=== PATIENT | male | born 1975 | race Caucasian/White ===

== ENCOUNTER 2020-04-16 23:47 | Emergency (ER) | payer SELFPAY ==
[~2020-04-16] VITALS: Ht 157.5 cm; Wt 78.0 kg
--- NOTE | 2020-04-16 23:54 | NUR ---
Oh faust in [facility] - 04/16/20 at 2355 by MEDDM AMBULATED TO ER BED 6
[2020-04-17 00:08] VITALS: BP 146/90
[2020-04-17] MEDS ORDERED: NACL 0.9% 1,000 ML IV SCH (00:17)
[2020-04-17] MEDS ORDERED: KETOROLAC 30 MG/ML VIAL IVP ONE (00:20)
--- NOTE | 2020-04-17 00:23 | NUR ---
AMBULATED TO ER BED 7
[2020-04-17 00:31] LABS: BASOPHILS # (AUTO) 0.1 K/uL (0.00-0.22); BASOPHILS % (AUTO) 0.8 % (0.0-2.0); EOSINOPHILS # (AUTO) 0.2 K/uL (0-0.4); EOSINOPHILS % (AUTO) 2.1 % (0.0-4.0); HEMATOCRIT 45.2 % (36-52); HEMOGLOBIN 15.3 g/dL (12.0-18.0); LYMPHOCYTES # (AUTO) 2.4 K/uL (2.0-11.5); LYMPHOCYTES % (AUTO) 23.4 % (20.5-51.1); MEAN CORPUSCULAR HEMOGLOBIN 31 pg (27-31); MEAN CORPUSCULAR HGB CONC 34 g/dL (33-37); MEAN CORPUSCULAR VOLUME 92.5 fL (80-94); MONOCYTES # (AUTO) 0.7 K/uL (0.8-1.0); MONOCYTES % (AUTO) 6.7 % (1.7-9.3); PLATELET COUNT (AUTO) 282 K/uL (140-450); RED BLOOD CELL COUNT(AUTO) 4.88 MIL/uL (4.20-6.10); RED CELL DISTRIBUTION WIDTH 13.7 % (11.6-13.7); WHITE BLOOD COUNT (AUTO) 10.4 K/uL (4.8-10.8)
--- NOTE | 2020-04-17 00:45 | NUR ---
44M PT PRESENTS TO ED WITH C/O DEHYDRATION, DIZZY, DIARRHEA X 7 DAYS. ALSO C/O PARK AND RATES PAIN 7/10 AND DESCRIBES IT THROBBING. BOWEL SOUNDS HYPERACTIVE AT ALL 4 QUADRANTS. ABD SOFT AND NON TENDER. DENIES SOB/COUGH. DENIES LOC. NKA. PMH: HTN
[2020-04-17 00:46] LABS: ANION GAP 13.2 (8-16); CARBON DIOXIDE 26.4 mmol/L (21-32); POTASSIUM 3.6 mmol/L (3.5-5.1); TOTAL BILIRUBIN 0.5 mg/dL (0.0-1.0)
[2020-04-17 02:29] VITALS: BP 132/75
--- NOTE | 2020-04-17 02:44 | NUR ---
RAINER DESIR AT BEDSIDE EVALUATING PT.
--- NOTE | 2020-04-17 02:53 | NUR ---
Patient discharged with v/s stable. Written and verbal after care instructions given and explained. Patient alert, oriented and verbalized understanding of instructions. Ambulatory with steady gait. All questions addressed prior to discharge. ID band removed. Patient advised to follow up with PMD. Rx of CIPRO, ZOFRAN, MOTRIN given. Patient educated on indication of medication including possible reaction and side effects. Opportunity to ask questions provided and answered.
== END 2020-04-17 02:53 | disposition home or self-care (01) ==
LOC: MED 23:47
DX: R19.7 Diarrhea, unspecified (principal); R51 Headache; I10 Essential (primary) hypertension
CPT/HCPCS: 36415; 80053; 83690; 85025; 96361; 96374; 99283; J1885; J7030

== ENCOUNTER 2020-11-28 19:45 | Inpatient (IN) | payer MEDICAID, SELFPAY ==
[~2020-11-28] VITALS: Ht 157.5 cm; Wt 65.3 kg
[2020-11-28 20:07] VITALS: BP 123/66
--- NOTE | 2020-11-28 20:08 | NUR ---
to bed # 11 ambulatory
--- NOTE | 2020-11-28 20:30 | NUR ---
PT HAS BEEN HAVING BODY ACHES, SOB, FEVER, AND HEADACHE X 2 WEEKS. SAYS HE COUGHED UP BLOOD TINGED PHELGM IN THE PAST TWO DAYS. PT SAYS HE HAD A RAPID COVID TEST YESTERDAY AT ANOTHER FACILITY AND TESTED NEGATIVE. PT'S COWORKERS HAVE BEEN SICK WITH COVID AND FAMILY MEMBERS. CURRENTLY AFEBRILE, C/O SOB, LUNG SOUNDS DIMINISHED AND COARSE. O2 SAT ON ROOM AIR 90%. PT PLACED IN GOWN, PUT ON BEDSIDE MONITOR, BED IN LOWEST POSITION AND SIDERAIL UP X 1. NKA HX - DENIES
[2020-11-28] MEDS ORDERED: ACETAMIN/CODEINE 120/12MG-5ML 5 ML UDC PO ONE (21:25)
--- NOTE | 2020-11-28 21:40 | NUR ---
PT MOVED TO BED 10, EXHIBITING COVID SYMPTOMS
--- NOTE | 2020-11-28 21:44 | NUR ---
X-RAY AT BEDSIDE
[2020-11-28] MEDS ORDERED: ACETAMINOPHEN EXTRA STRENGTH 500 MG TAB ONE (21:45)
[2020-11-28] MEDS ORDERED: AZITHROMYCIN 500 MG in DEXTROSE 5% 250 ML IV ONE (22:15)
[2020-11-28] MEDS ORDERED: DEXAMETHASONE 10 MG/ML VIAL IVP ONE (22:15)
--- NOTE | 2020-11-28 22:40 | NUR ---
PT REMAINS ON BEDSIDE MONITOR AND 02 AT 2L N/C. RESPIRATIONS REGULAR EVEN AND UNLABORED, PT STILL HAVING SOME BODY PAIN. WILL CONTINUE TO MONITOR.
[2020-11-28 22:47] LABS: BASOPHILS % (AUTO) 0.3 % (0.0-2.0); EOSINOPHILS # (AUTO) 0.1 K/uL (0-0.4); EOSINOPHILS % (AUTO) 1.2 % (0.0-4.0); HEMATOCRIT 42.5 % (36-52); HEMOGLOBIN 14.7 g/dL (12.0-18.0); LYMPHOCYTES # (AUTO) 1.2 K/uL (2.0-11.5); LYMPHOCYTES % (AUTO) 13.5 % (20.5-51.1); MEAN CORPUSCULAR HEMOGLOBIN 31 pg (27-31); MEAN CORPUSCULAR HGB CONC 35 g/dL (33-37); MEAN CORPUSCULAR VOLUME 89.1 fL (80-94); MONOCYTES # (AUTO) 0.7 K/uL (0.8-1.0); NEUTROPHILS # (AUTO) 6.7 K/uL (1.8-7.7); PLATELET COUNT (AUTO) 502 K/uL (140-450); RED BLOOD CELL COUNT(AUTO) 4.76 MIL/uL (4.20-6.10); RED CELL DISTRIBUTION WIDTH 12.9 % (11.6-13.7); WHITE BLOOD COUNT (AUTO) 8.6 K/uL (4.8-10.8)
[2020-11-28] MEDS ORDERED: AZITHROMYCIN 500 MG INJ VIAL IV ONE (22:48)
[2020-11-28] MEDS ORDERED: cefTRIAXone 1,000 MG VIAL ONE (22:48)
[2020-11-28 23:04] LABS: PROTHROMBIN TIME 9.5 secs (10.8-13.4)
[2020-11-28 23:05] LABS: ANION GAP 13.5 (8-16); CARBON DIOXIDE 27.8 mmol/L (21-32); CREATININE 0.9 mg/dL (0.6-1.3); POTASSIUM 3.3 mmol/L (3.5-5.1); TOTAL BILIRUBIN 0.5 mg/dL (0.0-1.0)
[2020-11-28 23:17] LABS: LACTATE DEHYDROGENASE 396 U/L (85-227)
[2020-11-28 23:35] LABS: D-DIMER 1710 ng/ml (0-400)
[2020-11-28 23:45] LABS: C-REACTIVE PROTEIN QUANT 22.7 mg/dL (0.0-0.9)
--- NOTE | 2020-11-29 00:12 | NUR ---
VIOLETA SWAB AND UA COLLECTED AND TAKEN TO LAB
--- NOTE | 2020-11-29 00:12 | NUR ---
INFLUENZA AND COVID PCR ALSO COLLECTED AND TAKEN TO LAB
[2020-11-29 00:20] LABS: APPEARANCE,URINE CLEAR (CLEAR); BILIRUBIN,URINE NEGATIVE (NEGATIVE); BLOOD, URINE NEGATIVE (NEGATIVE); COLOR,URINE DARK YELLOW (YELLOW); LEUKOCYTE ESTERASE ,URINE NEGATIVE (NEGATIVE); NITRITE, URINE NEGATIVE (NEGATIVE); PH,URINE 6.5 (5.0-9.0); UGLUCOSE NEGATIVE (NEGATIVE)
[2020-11-29 00:32] LABS: FIBRINOGEN > 999 mg/dL (200-400)
[2020-11-29] MEDS ORDERED: DOCUSATE SODIUM 100 MG GELCAP PO PRN (01:10)
[2020-11-29] MEDS ORDERED: ALBUTEROL HFA MDI 90 MCG/ACTUATION 8 GM INH PRN (01:10)
[2020-11-29] MEDS ORDERED: POTASSIUM CHLORIDE 10 MEQ TABER PO PRN (01:10)
[2020-11-29] MEDS ORDERED: ONDANSETRON 4 MG/2 ML VIAL IM/IVP PRN (01:10)
[2020-11-29] MEDS ORDERED: NACL 0.9% 1,000 ML IV SCH (01:10)
[2020-11-29] MEDS ORDERED: ACETAMINOPHEN 325 MG TAB PO PRN (01:10)
--- NOTE | 2020-11-29 01:47 | NUR ---
PT RESTING QUIETLY, RESPIRATIONS REGULAR EVEN AND UNLABORED. REMAINS ON BEDSIDE MONITOR WITH 02 AT 2L N/C. WILL CONTINUE TO MONITOR PT
[2020-11-29] MEDS ORDERED: HYDROcodone/APAP 7.5/325 MG 1 TAB ONE (01:54)
--- NOTE | 2020-11-29 01:58 | NUR ---
PT'S GIRLFRIEND, HENRRY, WAS ALSO TONIGHT IN THE ER FOR SIMILAR SYMPTOMS, SHE WAS D/C'ED BUT INQUIRED ABOUT STATUS OF PT. RECEIVED OK FROM PT TO PROVIDED HENRRY WITH INFO REGARDING HIS STAY. HENRRY [phone]
[2020-11-29 02:41] LABS: CHOL/HDL RATIO 3.8 (1-4.5); FREE T4 (FREE THYROXINE) 1.36 ng/dL (0.76-1.46); MAGNESIUM 2.7 mg/dL (1.8-2.4); PHOSPHORUS 3.7 mg/dL (2.5-4.9); THYROID STIMULATING HORMONE 5.01 uIU/mL (0.34-3.74)
--- NOTE | 2020-11-29 02:45 | NUR ---
PT PROVIDED WITH A SANDWICH AND JUICE, SAYING HE WAS HUNGRY. PT TOLERATED FOOD
[2020-11-29 04:00] VITALS: BP 120/73
[2020-11-29] MEDS: HYDROcodone/APAP 7.5/325 MG 1 TAB PO PRN ×2 (04:03→20:24)
[2020-11-29 04:04] VITALS: BP 120/73
--- NOTE | 2020-11-29 04:06 | NUR ---
Patient will be admitted to care of DR SHI. Admited to TELE. Will go to room 123. Belongings list completed. Report to AURELIO NESS.
--- NOTE | 2020-11-29 07:01 | NUR ---
PATIENT HAS BEEN SCREENED AND CATEGORIZED MODERATE NUTRITION RISK. PATIENT WILL BE SEEN WITHIN 3-5 DAYS OF ADMISSION. 12/01/20-12/03/20 MORENO CEDENO MS, RDN
--- NOTE | 2020-11-29 07:30 | NUR ---
RECEIVED REPORT FROM NIGHT NURSE FOR CONTINUITY OF CARE. PT IS STABLE, PT ON 4L VIA NC. PT HAS RAC 20G INFUSING NS AT 40ML/H, SAFETY MEASURE IN PLACE, WILL CONTINUE TO MONITOR.
[2020-11-29 08:00] VITALS: BP 117/76
[2020-11-29] MEDS: ZINC SULF 220 MG CAP PO SCH (08:32)
[2020-11-29] MEDS: ASCORBIC ACID 500 MG TAB PO SCH (08:32)
--- NOTE | 2020-11-29 08:37 | NUR ---
ADMINISTERED SCHEDULED MEDICATION, MEDICATION EDUCATION PROVIDED. PT TOLERATED WELL. PT IS STABLE, WILL CONTINUE TO MONITOR.
--- NOTE | 2020-11-29 11:30 | NUR ---
ROUNDING ON PT, PT IS SITTING IN BED, PT IS STABLE, WILL CONTINUE TO MONITOR.
[2020-11-29 12:00] VITALS: BP 122/77
--- NOTE | 2020-11-29 13:00 | NUR ---
ROUNDING ON PT, PT IS STABLE, WILL CONTINUE TO MONITOR
[2020-11-29 16:00] VITALS: BP 127/79
--- NOTE | 2020-11-29 16:30 | NUR ---
ROUNDING ON PT, PT IS STABLE, WILL CONTINUE TO MONITOR
[2020-11-29 19:00] VITALS: BP 126/78
--- NOTE | 2020-11-29 19:00 | NUR ---
PATIENT RECEIVED IN BED ALERT AND ORIENTED X 4. 4L NC O2 CONTINUED. RESPIRATIONS EVEN. BILATERAL PNEUMONIA, COVID POSITIVE NOTED. SKIN COLOR ACYANOTIC. RESPIRATORY PRECAUTIONS CONTINUED. REMDESIVOR PENDING EVALUATION BY DR. FRENCH. DISCUSSED WITH PATIENT MEDICATION MANAGEMENT, FALL AND SAFETY PRECAUTIONS AND RN PLAN OF CARE. PATIENT RECEPTIVE TO INSTRUCTIONS. PATIENT CALM AND COOPERATIVE. RECEPTIVE TO MEDICAL MANAGEMENT AND PLAN OF CARE. VSS. NO ACUTE DISTRESS NOTED.
--- NOTE | 2020-11-29 19:25 | NUR ---
ENDORSE PT TO NIGHT NURSE FOR CONTINUITY OF CARE
[2020-11-29] MEDS: AZITHROMYCIN 250 MG TAB PO SCH (22:27)
[2020-11-30] VITALS: BP 124/76
--- NOTE | 2020-11-30 | NUR ---
PATIENT SLEEPING DURING ROUNDING. EASILY AROUSED. DISCUSSED FALL AND SAFETY PRECAUTIONS. VITAL SIGN WITH PARAMETER. RESPIRATIONS EVEN AND NONLABORED. NO ACUTE DISTRESS NOTED. RN CONTINUE WITH PLAN OF CARE.
[2020-11-30 04:00] VITALS: BP 124/76
[2020-11-30 06:23] LABS: BASOPHILS % (AUTO) 0.2 % (0.0-2.0); EOSINOPHILS % (AUTO) 0.1 % (0.0-4.0); HEMATOCRIT 40.1 % (36-52); HEMOGLOBIN 13.4 g/dL (12.0-18.0); LYMPHOCYTES # (AUTO) 1.1 K/uL (2.0-11.5); MEAN CORPUSCULAR HEMOGLOBIN 30 pg (27-31); MEAN CORPUSCULAR HGB CONC 33 g/dL (33-37); MONOCYTES # (AUTO) 0.9 K/uL (0.8-1.0); MONOCYTES % (AUTO) 6.8 % (1.7-9.3); NEUTROPHILS # (AUTO) 11.7 K/uL (1.8-7.7); NEUTROPHILS % (AUTO) 84.9 % (42.2-75.2); PLATELET COUNT (AUTO) 629 K/uL (140-450); RED BLOOD CELL COUNT(AUTO) 4.46 MIL/uL (4.20-6.10); RED CELL DISTRIBUTION WIDTH 12.8 % (11.6-13.7); WHITE BLOOD COUNT (AUTO) 13.8 K/uL (4.8-10.8)
[2020-11-30 07:01] LABS: CREATININE 0.7 mg/dL (0.6-1.3); POTASSIUM 4.4 mmol/L (3.5-5.1)
--- NOTE | 2020-11-30 07:15 | NUR ---
RECEIVED REPORT FROM NIGHT NURSE FOR CONTINUITY OF CARE. PT IS STABLE, PT ASLEEP. PT HAS RAC 20G SALINE LOCK. PT ON 4L NC, SAFETY MEASURES IN PLACE, WILL CONTINUE TO MONITOR.
[2020-11-30 08:00] VITALS: BP 99/67
[2020-11-30 08:13] LABS: CARBON DIOXIDE 32.4 mmol/L (21-32)
[2020-11-30] MEDS: AZITHROMYCIN 250 MG TAB PO SCH (08:33)
[2020-11-30] MEDS: ASCORBIC ACID 500 MG TAB PO SCH (08:33)
[2020-11-30] MEDS: ZINC SULF 220 MG CAP PO SCH (08:33)
--- NOTE | 2020-11-30 08:39 | NUR ---
ADMINISTERED SCHEDULED MEDICATION, MEDICATION EDUCATION PROVIDED. PT TOLERATED WELL. PT IS STABLE, WILL CONTINUE TO MONITOR.
--- NOTE | 2020-11-30 10:37 | NUR ---
[facility] REFERRAL RECEIVED ON 11/30/20. PATIENT HAS BEEN RE-SCREENED AND CATEGORIZED HIGH NUTRITION RISK. PATIENT WILL BE SEEN WITHIN 1-2 DAYS OF ADMISSION. 11/29/20 - 11/30/20 ALYSHA ARECHIGA MBA, RD
--- NOTE | 2020-11-30 11:53 | NUR ---
ROUNDING ON PT, PT IS STABLE, WILL CONTINUE TO MONITOR.
[2020-11-30 12:00] VITALS: BP 114/69
--- NOTE | 2020-11-30 13:00 | NUR ---
SOCIAL WORK NOTE: Patient's Orientation Unable To Assess Information Provided By HENRRY PEDRAZA OTHER Comments SW WAS UNABLE TO MEET PATIENT AT BEDSIDE. SW COMPLETED ASSESSMENT WITH PATIENT'S SIGNIFICANT OTHER. Private Branch Exchange Repairer, Realtionship and Phone Number HENRRY LAA SIGNIFICANT OTHER [phone] Healthcare Power of Production Control Expert No Does Patient Have a POLST No Identifying Problems No Social Work Triggers Is A Social Work Consult Needed No Mandate Report Filed No Explanation Of Identifying Problems PATIENT IS A 44-YEAR-OLD MALE ADMITTED FOR BILATERAL PNA. PATIENT HAS NO REPORTED PMHX. NO REPORTED SUBSTANCE ABUSE OR MENTAL HEALTH. Admitted From Home Pre-Admission Level Of Functioning Status Independent/Ambulatory Prior Resources/Services Used In Last 12 Months No Prior Resources Used Prior DME No Prior DME Used Dialysis Comments N/A Living Situation Apartment Lives W/Significant Other Rents A Room Patient Had Caregiver No Home Support No Caregiver Issues Financial Issues No Known Financial Issue Factors/Needs No D/C Needs Identified Pt/Rep Participated In Discharge Plan Yes Patient/Family Agress With Discharge Plan Yes Discharge Plan Comments TENTATIVE DISCHARGE PLAN IS FOR PATIETN TO RETURN HOME. DC Plan Status Initiated
--- NOTE | 2020-11-30 13:13 | NUR ---
11/30/20 RD INITIAL ASSESSMENT COMPLETED PLEASE REFER TO NUTRITION ASSESSMENT UNDER CARE ACTIVITY FOR ESTIMATED NUTRITIONAL NEEDS. RD RECOMMENDATIONS: 1. RECOMMEND CONTINUE REGULAR DIET 2. FOLLOW UP 3-5 DAYS; MODERATE RISK ALYSHA ARECHIGA MBA, RD
[2020-11-30] MEDS ORDERED: remdesivir COMMUNICATION ORDER 1 EA MISC MC PRN (13:35)
[2020-11-30] MEDS ORDERED: remdesivir CLINICAL MONITORING 1 EA MISC MC PRN (13:40)
--- NOTE | 2020-11-30 14:04 | NUR ---
Received critical lab value PCR +.
[2020-11-30] MEDS ORDERED: REMDESIVIR (EUA) 200 MG in NACL 0.9% 100 ML IV SCH (15:00)
[2020-11-30 16:00] VITALS: BP 123/74
--- NOTE | 2020-11-30 16:11 | NUR ---
ADMINISTERED SCHEDULED MEDICATION, MEDICATION EDUCATION PROVIDED. PT TOLERATED WELL. PT IS STABLE,E WILL CONTINUE TO MONITOR.
--- NOTE | 2020-11-30 19:35 | NUR ---
ENDORSE PT TO NIGHT NURSE FOR CONTINUITY OF CARE
[2020-11-30 20:00] VITALS: BP 122/72
[2020-12-01] VITALS: BP 119/77
[2020-12-01 01:25] VITALS: BP 118/62
[2020-12-01 06:16] VITALS: BP 104/60
[2020-12-01 06:30] LABS: BASOPHILS % (AUTO) 0.1 % (0.0-2.0); HEMOGLOBIN 13.2 g/dL (12.0-18.0); LYMPHOCYTES # (AUTO) 1.6 K/uL (2.0-11.5); LYMPHOCYTES % (AUTO) 11.2 % (20.5-51.1); MEAN CORPUSCULAR HEMOGLOBIN 31 pg (27-31); MEAN CORPUSCULAR HGB CONC 34 g/dL (33-37); MONOCYTES # (AUTO) 1.1 K/uL (0.8-1.0); MONOCYTES % (AUTO) 7.4 % (1.7-9.3); NEUTROPHILS # (AUTO) 11.7 K/uL (1.8-7.7); NEUTROPHILS % (AUTO) 81.3 % (42.2-75.2); PLATELET COUNT (AUTO) 699 K/uL (140-450); RED BLOOD CELL COUNT(AUTO) 4.33 MIL/uL (4.20-6.10); RED CELL DISTRIBUTION WIDTH 12.5 % (11.6-13.7); WHITE BLOOD COUNT (AUTO) 14.4 K/uL (4.8-10.8)
[2020-12-01 06:54] LABS: ALBUMIN 2.7 g/dL (3.4-5.0); ANION GAP 12.6 (8-16); CARBON DIOXIDE 26.6 mmol/L (21-32); CREATININE 0.8 mg/dL (0.6-1.3); POTASSIUM 4.2 mmol/L (3.5-5.1); TOTAL BILIRUBIN 0.2 mg/dL (0.0-1.0)
--- NOTE | 2020-12-01 08:18 | NUR ---
PATIENT IN BED RESTING COMFORTABLY, PRESENTS CALM AND COOPERATIVE, ABLE TO EXPRESS NEEDS. RESPIRATIONS ARE NON-LABORED. IV ACCESS IS PATENT, DRY AND INTACT. SKIN IS CLEAN,W ARM AND DRY TO TOUCH. BED IS LOCKED IN LOWEST POSITION, CALL LIGHT IN REACH. NURSE WILL CONTINUE TO MONITOR FOR CHANGES IN STATUS.
[2020-12-01] MEDS: ASCORBIC ACID 500 MG TAB PO SCH (09:33)
[2020-12-01] MEDS: ZINC SULF 220 MG CAP PO SCH (09:33)
[2020-12-01 10:40] VITALS: BP 122/68
--- NOTE | 2020-12-01 11:29 | NUR ---
PATIENT RESTING COMFORTABLY, NO C/O PAIN OR DISCOMFORT, SKIN IS CLEAN, WARM AND DRY TO TOUCH. RESPIRATIONS NON-LABORED. SKIN IS CLEAN, WARM AND DRY TO TOUCH. BED IS LOCKED IN LOWEST POSITION, CALL LIGHT IN REACH. NURSE WILL CONTINUE CARE AND MONITOR FOR CHANGES IN STATUS.
[2020-12-01] MEDS ORDERED: REMDESIVIR (EUA) 100 MG in NACL 0.9% 100 ML IV SCH (15:00)
--- NOTE | 2020-12-01 15:57 | NUR ---
PATIENT RESTING COMFORTABLY, NO C/ O PAIN OR DISCOMFORT. RESPIRATIONS ARE NON-LABORED. SKIN IS CLEAN WARM AND DRY TO TOUCH. BED IS LOCKED IN LOWEST POSITION FOR SAFETY, CALL LIGHT IN REACH. NURSE WILL CONTINUE TO MONITOR FOR CHANGES IN STATUS.
[2020-12-01 16:03] VITALS: BP 96/64
--- NOTE | 2020-12-01 16:15 | NUR ---
DC [age] YRS OLD FEMALE PATIENT WAS ADMITTED FROM HOME WITH A DX OF BILATERAL PNEUMONIA ,HYPOXIA. CXR SHOWED BILATERAL INFILTRATES. COVID TEST PCR AND RAPID POSITIVE. STARTED COVID TREATMENT REMDESEVIR , AZITHROMYCIN AND ROCEPHIN IV ABX. ON O2 2L/NC SATING 96 % SEEN BY ID AND PULMO. DC PLAN TO GO HOME WHEN STABLE CM TO FOLLOW
--- NOTE | 2020-12-01 19:00 | NUR ---
PATIENT RECEIVED IN BED ALERT TO SELF ONLY. REQUIRES 2 PERSON ASSISTANCE. MAXIMAL CARE RENDERED. MEDICATIONS ADMINISTERED ORDERED. NO ADVERSE EFFECTS NOTED. NO SEIZURE. PATIENT PULLED OUT IV TO LFA. NO UNTOWARD BLEEDING NOTED. RN INFORMED PATIENT OF PLAN OF CARE. PT REQUIRES PROMPTING DURING CARE. INCONTINENT CARE RENDERED. FALL AND SAFETY PRECAUTIONS CONTINUED. NO SEIZURE ACTIVITY NOTED. SIDE RAILS PADDED. NO ACUTE DISTRESS NOTED. BED IN LOWER POSITION. VITAL SIGNS STABLE.
--- NOTE | 2020-12-01 19:14 | NUR ---
PATIENT RESTING COMFORTABLY, NO C/O PAIN OR DISCOMFORT. RESPIRATIONS ARE NON-LABORED. SKIN IS CLEAN, WARM AND DRY TO TOUCH . IV ACCESS IS PATENT, DRY AND INTACT. BED IS LOCKED IN LOWEST POSITION, CALL LIGHT IN REACH. PATIENT ENDORSED TO INK MAKER NURSE.
--- NOTE | 2020-12-01 19:14 | NUR ---
NURSE ENDORSED TO NUCLEAR WEAPONS CUSTODIAN NURSE TO COLLECT PLASMA WHEN READY PER BLOOD BANK.
[2020-12-01 20:00] VITALS: BP 98/55
[2020-12-02] VITALS (7 sets, daily range): BP systolic 91–120; BP diastolic 51–68
--- NOTE | 2020-12-02 | NUR ---
PATIENT SLEEPING DURING ROUNDING, EASILY AROUSED. FALL AND SAFETY PRECAUTIONS MAINTAINED. VITAL SIGNS STABLE. NO ACUTE DISTRESS NOTED.
[2020-12-02 05:54] LABS: BASOPHILS % (AUTO) 0.1 % (0.0-2.0); EOSINOPHILS % (AUTO) 0.3 % (0.0-4.0); HEMATOCRIT 40.2 % (36-52); HEMOGLOBIN 13.6 g/dL (12.0-18.0); LYMPHOCYTES # (AUTO) 1.9 K/uL (2.0-11.5); LYMPHOCYTES % (AUTO) 15.1 % (20.5-51.1); MEAN CORPUSCULAR HEMOGLOBIN 31 pg (27-31); MEAN CORPUSCULAR HGB CONC 34 g/dL (33-37); MEAN CORPUSCULAR VOLUME 89.9 fL (80-94); MONOCYTES # (AUTO) 0.9 K/uL (0.8-1.0); NEUTROPHILS # (AUTO) 9.8 K/uL (1.8-7.7); NEUTROPHILS % (AUTO) 77.5 % (42.2-75.2); PLATELET COUNT (AUTO) 774 K/uL (140-450); RED BLOOD CELL COUNT(AUTO) 4.47 MIL/uL (4.20-6.10); RED CELL DISTRIBUTION WIDTH 12.9 % (11.6-13.7); WHITE BLOOD COUNT (AUTO) 12.7 K/uL (4.8-10.8)
[2020-12-02 06:32] LABS: ANION GAP 14.2 (8-16); CARBON DIOXIDE 25.3 mmol/L (21-32); CREATININE 0.9 mg/dL (0.6-1.3); POTASSIUM 4.5 mmol/L (3.5-5.1); TOTAL BILIRUBIN 0.3 mg/dL (0.0-1.0)
--- NOTE | 2020-12-02 07:38 | NUR ---
RECEIVED PATIENT IN BED RESTING COMFORTABLY, PRESENTS CALM AND COOPERATIVE. NO C/O PAIN OR DISCOMFORT. RESPIRATIONS ARE NON-LABORED. SKIN IS CLEAN WARM AND DRY TO TOUCH. IV ACCESS IS PATENT, DRY AND INTACT. NO S/SX OF REDNESS/SWELLING OR PAIN NOTED. BED IS LOCKED IN LOWEST POSITION, CALL LIGHT IN REACH. NURSE WILL CONTINUE CARE AND MONITOR FOR CHANGES IN STATUS.
[2020-12-02] MEDS: ASCORBIC ACID 500 MG TAB PO SCH (09:41)
[2020-12-02] MEDS: ZINC SULF 220 MG CAP PO SCH (09:41)
[2020-12-02] MEDS ORDERED: DEC1 PO (10:59)
[2020-12-02] MEDS ORDERED: AZIT250T3 PO (10:59)
[2020-12-02] MEDS ORDERED: ASPI-1205 PO (10:59)
--- NOTE | 2020-12-02 17:26 | NUR ---
PATIENT DISCHARGED TO HOME WITH DISCHARGE AND FOLLOW UP INSTRUCTIONS, MEDICATION EDUCATION GIVEN, PATIENT VERBALIZES UNDERSTANDING. NO C/O PAIN OR DISCOMFORT. RESPIRATIONS ARE NON-LABORED. SKIN IS CLEAN WARM AND DRY TO TOUCH. IV ACCESS IS DISCONTINUED. NO S/SX OF REDNESS/SWELLING OR PAIN NOTED. PATIENT ESCORTED TO AWAITING VEHICLE/FAMILY. PATIENT DISCHARGED FROM CARE.
== END 2020-12-02 17:35 | disposition home or self-care (01) | DRG 720 ==
LOC: MED 19:45 → MTU 23:33
PROVIDERS: ADMIT Emergency Medicine; ATTEND Emergency Medicine
PROC: XW033E5 Introduction of Remdesivir Anti-infective into Peripheral Vein, Percutaneous Approach, New Technology Group 5 (ICD-10-PCS; principal; 2020-12-01)
PROC: XW13325 Transfusion of Convalescent Plasma (Nonautologous) into Peripheral Vein, Percutaneous Approach, New Technology Group 5 (ICD-10-PCS; 2020-12-02)
DX: A41.9 Sepsis, unspecified organism (principal); U07.1 COVID-19; J12.82 Pneumonia due to coronavirus disease 2019; J96.01 Acute respiratory failure with hypoxia; E43 Unspecified severe protein-calorie malnutrition; E83.41 Hypermagnesemia; E87.6 Hypokalemia; I10 Essential (primary) hypertension; Z68.26 Body mass index [BMI] 26.0-26.9, adult; E87.5 Hyperkalemia; E02 Subclinical iodine-deficiency hypothyroidism
CPT/HCPCS: 36415; 71045; 80048; 80053; 81003; 82550; 82728; 83036; 83605; 83615; 83735; 83880; 84100; 84436; 84439; 84443; 84479; 84484; 85025; 85379; 85384; 85610; 85651; 85730; 86140; 86900; 86901; 87040; 87086; 87804; 93005; 99291; J0456; J0696; J1100; J1644; J7030; J7060; P9017; U0003